=== PATIENT | female | born 1995 | race Caucasian/White ===

== ENCOUNTER 2019-06-08 17:53 | Emergency (ER) | payer OTHER ==
[~2019-06-08] VITALS: Ht 162.6 cm; Wt 50.0 kg
[2019-06-08 19:49] VITALS: BP 138/81
== END 2019-06-08 19:49 | disposition home or self-care (01) | DRG 605 ==
LOC: ED 17:53
PROC: 0HQNXZZ Repair Left Foot Skin, External Approach (ICD-10-PCS; principal; 2019-06-08)
DX: S91.312A Laceration without foreign body, left foot, initial encounter (principal); W18.39XA Other fall on same level, initial encounter; Y93.42 Activity, yoga